=== PATIENT | male | born 1990 | race African-American/Black ===

== ENCOUNTER 2017-10-28 09:50 | Day surgery (SDC) | payer OTHER ==
[2017-10-27 13:47] LABS: APPEARANCE,URINE CLEAR; BILIRUBIN,URINE NEGATIVE (NEGATIVE); GLUCOSE, URINE NEGATIVE (NEGATIVE); KETONES,URINE NEGATIVE (NEGATIVE); LEUKOCYTE ESTERASE,URINE NEGATIVE (NEGATIVE); NITRITE,URINE NEGATIVE (NEGATIVE); PROTEIN,URINE NEGATIVE (NEGATIVE); URINE SPECIFIC GRAVITY 1.024; UROBILINOGEN,URINE NEGATIVE mg/dL (<2.0)
[2017-10-27 13:48] LABS: ABSOLUTE EOSINOPHILS # (AUTO) 0.2 10^3/uL (0.0-0.6); ABSOLUTE LYMPHOCYTES (AUTO) 2.2 10^3/uL (0.5-4.7); ABSOLUTE MONOCYTES (AUTO) 0.5 10^3/uL (0.1-1.4); ABSOLUTE NEUT (AUTO) 3.2 10^3/uL (1.7-8.2); BASOPHILS % (AUTO) 0.7 % (0-2); EOSINOPHILS % (AUTO) 3.7 % (0-6); HEMATOCRIT 46.3 % (37.9-51.0); HEMOGLOBIN 15.9 g/dL (13.5-17.0); HGB HCT DIFFERENCE 1.4; LYMPHOCYTES % (AUTO) 35.4 % (13-45); MEAN CORPUSCULAR HEMOGLOBIN 29.9 pg (27.0-33.4); MEAN CORPUSCULAR HGB CONC 34.4 g/dL (32.0-36.0); MEAN CORPUSCULAR VOLUME 87 fl (80-97); MONOCYTES % (AUTO) 7.9 % (3-13); RED BLOOD COUNT 5.34 10^6/uL (4.35-5.55); RED CELL DISTRIBUTION WIDTH 14.2 % (11.5-14.0); SEGMENTED NEUTROPHILS % (AUTO) 52.3 % (42-78); WHITE BLOOD COUNT 6.2 10^3/uL (4.0-10.5)
[2017-10-27 14:13] LABS: ANION GAP 12 (5-19); BLOOD UREA NITROGEN 16 mg/dL (7-20); CALCIUM 10.1 mg/dL (8.4-10.2); CARBON DIOXIDE 29 mmol/L (22-30); CHLORIDE 102 mmol/L (98-107); CREATININE RESULT 1.05 mg/dL (0.52-1.25); GLUCOSE 84 mg/dL (75-110); POTASSIUM 5.2 mmol/L (3.6-5.0); SODIUM 142.7 mmol/L (137-145)
[~2017-10-28 09:50] MED LIST: CEFAZOLIN 2 GM/D5W RTU 2 GM/50 ML RTUPB IV PRN; LACTATED RINGERS 1000 ML IV PRN
[2017-10-28] MEDS ORDERED: BUPIVACAINE HCL 0.5 % INJ/PF 30 ML SDV ONE (11:06)
[2017-10-28] MEDS ORDERED: EPINEPHRINE INJ/PF 1 MG/1 ML AMPULE ONE (11:20)
[2017-10-28] MEDS ORDERED: HYDROMORPHONE HCL INJ/PF 2 MG/ML AMPULE ONE (11:31)
[2017-10-28] MEDS ORDERED: MIDAZOLAM 2 MG/2 ML INJ ONE (11:31)
[2017-10-28] MEDS ORDERED: FENTANYL CITRATE INJ/PF 100 MCG/2 ML AMPUL ONE ×2 (11:31→14:34)
[2017-10-28] MEDS ORDERED: ONDANSETRON HCL INJ/PF 4 MG/2 ML SDV ONE ×2 (11:32→15:26)
[2017-10-28] MEDS ORDERED: DEXAMETHASONE SOD PHOSPHATE INJ 4 MG/1 ML VIAL ONE ×2 (11:32→15:26)
[2017-10-28] MEDS ORDERED: EPHEDRINE SULFATE INJ 50 MG/1 ML AMPULE ONE (11:32)
[2017-10-28] MEDS ORDERED: PROPOFOL INJ 200 MG/20 ML VIAL IV ONE (11:32)
[2017-10-28] MEDS ORDERED: ACETAMINOPHEN 100 ML IV ONE (11:32)
[2017-10-28] MEDS ORDERED: SUCCINYLCHOLINE CHLORIDE INJ 200 MG/10 ML VIAL ONE (11:38)
[2017-10-28] MEDS ORDERED: FENTANYL CITRATE INJ/PF 100 MCG/2 ML AMPUL IV PRN ×3 (12:34)
[2017-10-28] MEDS ORDERED: DIPHENHYDRAMINE HCL 50 MG/ML VIAL IV PRN (12:34)
[2017-10-28] MEDS ORDERED: MEPERIDINE HCL/PF INJ 25 MG/1 ML DISP.SYRIN IV PRN (12:34)
[2017-10-28] MEDS ORDERED: PROMETHAZINE HCL INJ 25 MG/1 ML VIAL IV PRN (12:34)
--- NOTE | 2017-10-28 14:24 | Operative Report ---
Operative Report DATE OF SURGERY: 10/28/17 PREOPERATIVE DIAGNOSIS: Right hip labral tear and femoral acetabular impingement POSTOPERATIVE DIAGNOSIS: Same OPERATION: Right hip arthroscopy with labral debridement, iliopsoas fractional lengthening and femoroplasty SURGEON: BRITTANY BINGHAM ANESTHESIA: GA TISSUE REMOVED OR ALTERED: none COMPLICATIONS: none ESTIMATED BLOOD LOSS: Less than 20 mL INTRAOPERATIVE FINDINGS: As above PROCEDURE: Patient was brought to the operating room. The patient was induced and intubated in supine position. IV antibiotics were given prior to entering the OR. Boots were placed on both lower extremities. Peroneal post was applied and the patient was brought down to the perineal post. Both extremities were securing and the hip distraction system. At this point traction was placed in both lower extremities. C-arm was used to guide us and allow us to dislocate the right hip successfully. Once sedated gross traction and then gentle traction and confirm a dislocation under C-arm I started the time her the right lower extremity was taken off of gross traction. This point the right hip was prepped and draped in a normal sterile surgical fashion. Timeout was done identifying the left hip as the correct site. With the use of C-arm I placed a spinal needle and the anticipated anterolateral portal site. Once I felt that I piercing the capsule, I inflated the capsule with air using a 60 mL sterile syringe, this was showing proper placement intra-articularly. I this point I placed a nitinol wire and removed the spinal needle. I proceeded to dilate appropriately after using a scalpel to do a incision establish a my portal site. Camera then was introduced and under direct visualization proceeded to use a spinal needle to status my anterior portal site. I marked the ASIS and the midline in the midportion of the thigh to make sure that we were on the lateral aspect of the spine to avoid any neurovascular structures. Once I pursue Sloughing directly visualize a spinal needle and proceeded to use the same technique of placing nitinol wire, removed the needle and then proceeded to dilate the capsule after establishing the portal site with a scalpel. At this point I proceeded to do my arthrotomy using a retractable [place] blade. I proceeded to use switching sticks to changed my camera to the anterior portal and allowing to do complete my arthrotomy from the anterolateral portal using the retractable [place] blade. At this point once the arthrotomy was completed I proceeded to do my diagnostic arthroscopy. Patient had some fraying and a small flap tear of the anterior portion of the acetabular labrum. There is no detached labrum off of the acetabular rim. Combination of radiofrequency ablator and 4.0mm curved shaver was used to do the resection. Pictures were taken showing the resection and remaining labrum. I visualized the iliopsoas tendon which was superiorly and then released it with the retractable [place] blade. Pictures were taken showing the tractional lengthening. At this point traction was released and removed to the peripheral compartment where released in the capsule further to expose the femoral head and neck junction. With the C -arm and direct visualization I used a barrel bur to do my limited femoral plasty I flexed the hip and internally and externally rotated and make sure I did a smooth transition and resection. Also satisfied at this point I removed the fluid and remove the instruments from the 2 portal sites and proceeded to close the 2 portal sites with 3-0 nylon. Incisions were covered with Xeroform, 4 x 4 dressing, ABD pad and then secured with Medipore tape. Patient was then extubated and sent to PACU in stable condition
[2017-10-28] MEDS ORDERED: OXYCODONE-ACETAMINOPHEN 5-325 MG TABLET PO PRN ×2 (14:31)
--- NOTE | 2017-10-28 14:31 | PDOC DISCHARGE SUMMARY ---
Discharge Summary (SDC) - Discharge Final Diagnosis: Right hip arthroscopy with labral debridement, fractional lengthening of iliopsoas tendon, femoroplasty Date of Surgery: 10/28/17 Discharge Date: 10/28/17 Condition: Good Treatment or Instructions: Patient instructed to follow up in 10-14 days. Patient instructed to keep dressing dry clean and intact for 4 days and then allowed to remove. At that point patient can shower and apply Band-Aids as needed. Patient can do range of motion as tolerated. Avoid external rotation of the operative hip. Nonweightbearing with crutches 6 weeks Patient instructed to call the office if patient develops fevers chills redness and drainage from the surgical sites. Prescriptions: Oxycodone HCl/Acetaminophen [Percocet 5-325 mg Tablet] 1 - 2 tab PO ASDIR PRN # 40 tablet PRN Reason: Discharge Diet: As Tolerated Respiratory Treatments at Home: Deep Breathing/Coughing Discharge Activity: Activity As Tolerated, No Lifting/Push/Pulling, Slowly Increase Activity Home Care Assistance: None Needed Report the Following to Your Physician Immediately: Shortness of Breath, Vomiting, Increase in Pain, Fever over 101 Degrees, Unusual Bleeding, Redness, Swelling, Warmth, Increased Soreness, Drainage-Yellow, Drainage-Thomason, Drainage- Green, Drainage-Foul Smelling
--- NOTE | 2017-10-28 15:59 | RADIOLOGY REPORT (SQ) ---
EXAM DESCRIPTION: HIP IN OPERATING RM COMPLETED DATE/TIME: 10/28/2017 3:32 pm REASON FOR STUDY: RT HIP ARTHROSCOPY ASSISTED WITH FLUORO IN OR M25.851 OTHER SPECIFIED JOINT DISOR DERS, RIGHT HIP M24.159 OTHER ARTICULAR CARTILAGE DISORDERS, UNSPECIFIED HIP COMPARISON: None. FLUOROSCOPY TIME: 0.8 minutes 6 images saved to PACS. TECHNIQUE: Intra-operative images acquired during surgical procedure to evaluate progress. NUMBER OF IMAGES: 6 images LIMITATIONS: None. FINDINGS: Fluoroscopic images were obtained during performance of a right hip arthroscopy. Please r efer to the surgeon's operative report for additional information IMPRESSION: IMAGE(S) OBTAINED DURING PROCEDURE. COMMENT: Quality ID [id number]: Final reports for procedures using fluoroscopy that document radiation exp osure indices, or exposure time and number of fluorographic images (if radiation exposure indices are not available) Please consult full operative report of the attending physician for description of the procedure. TECHNICAL DOCUMENTATION: JOB ID: [id number] [employer]- All Rights Reserved
--- NOTE | 2017-10-28 15:59 | RADIOLOGY REPORT (SQ) ---
EXAM DESCRIPTION: NO CHG FLUORO COMPLETE DATE/TIME: 10/28/2017 3:32 pm REASON FOR STUDY: RT HIP ARTHROSCOPY ASSISTED WITH FLUORO IN OR M25.851 OTHER SPECIFIED JOINT DISOR DERS, RIGHT HIP M24.159 OTHER ARTICULAR CARTILAGE DISORDERS, UNSPECIFIED HIP FINDINGS: Please see combined report for performance of procedure and radiologic supervision and int erpretation. IMPRESSION: Please see combined report for performance of procedure and radiologic supervision and i nterpretation.
[2017-10-28 17:23] VITALS: BP 104/56
== END 2017-10-28 16:52 | disposition home or self-care (01) ==
LOC: OROUT 09:50
PROVIDERS: ATTEND Orthopaedic Surgery
PROC: 0L8J4ZZ Division of Right Hip Tendon, Percutaneous Endoscopic Approach (ICD-10-PCS; 2017-10-28)
PROC: 0SQC4ZZ Repair Right Knee Joint, Percutaneous Endoscopic Approach (ICD-10-PCS; 2017-10-28)
PROC: 0SQ94ZZ Repair Right Hip Joint, Percutaneous Endoscopic Approach (ICD-10-PCS; principal; 2017-10-28 11:45)
DX: M25.851 Other specified joint disorders, right hip (principal); M24.159 Other articular cartilage disorders, unspecified hip; Z79.1 Long term (current) use of non-steroidal anti-inflammatories (NSAID); Z79.899 Other long term (current) drug therapy
CPT/HCPCS: 29916; 27299; 29914; 36415 ×2; 84132; 85025; 80048; 81001; 73501; J2250; J1100; J3490; J0171; J3010; J1170; J0330; J2405; J2704; J0690; J0131; 01202